=== PATIENT | male | born 1975 | race Two or more races ===

== ENCOUNTER 2019-01-18 16:03 | Outpatient (CLI) | payer OTHER | END 2019-01-18 16:42 | disposition home or self-care (01) | LOC: RAD 16:03 | DX: M54.5 Low back pain (principal) ==

== ENCOUNTER 2020-07-17 13:36 | Outpatient (CLI) | payer OTHER | END 2020-07-17 13:53 | disposition home or self-care (01) | LOC: RAD 13:36 | PROVIDERS: ATTEND General Practice | DX: M79.644 Pain in right finger(s) (principal) ==

== ENCOUNTER 2020-07-22 06:22 | Outpatient (CLI) | payer OTHER | END 2020-07-22 15:00 | disposition home or self-care (01) | LOC: LAB 06:22 | PROVIDERS: ATTEND General Practice | DX: M79.644 Pain in right finger(s) (principal); Z11.3 Encounter for screening for infections with a predominantly sexual mode of transmission; Z11.4 Encounter for screening for human immunodeficiency virus [HIV]; Z12.11 Encounter for screening for malignant neoplasm of colon; Z12.5 Encounter for screening for malignant neoplasm of prostate; Z13.0 Encounter for screening for diseases of the blood and blood-forming organs and certain disorders involving the immune mechanism; I10 Essential (primary) hypertension; Z13.220 Encounter for screening for lipoid disorders; Z13.228 Encounter for screening for other metabolic disorders; Z13.29 Encounter for screening for other suspected endocrine disorder; R10.84 Generalized abdominal pain; E03.8 Other specified hypothyroidism; E55.9 Vitamin D deficiency, unspecified ==

== ENCOUNTER 2021-11-18 10:24 | Emergency (ER) | payer OTHER ==
[~2021-11-18] VITALS: Ht 160 cm; Wt 100.7 kg
[2021-11-18] MEDS ORDERED: COZAAR25 MG PO (10:31)
== END 2021-11-18 12:22 | disposition home or self-care (01) ==
LOC: ER 10:24
DX: K59.00 Constipation, unspecified (principal)

== ENCOUNTER 2022-04-19 12:02 | Emergency (ER) | payer OTHER ==
[~2022-04-19] VITALS: Ht 162.6 cm; Wt 103.9 kg
[~2022-04-19 12:02] MED LIST: COZAAR25 MG PO
== END 2022-04-19 13:56 | disposition home or self-care (01) ==
LOC: ER 12:02
DX: S63.501A Unspecified sprain of right wrist, initial encounter (principal); X58.XXXA Exposure to other specified factors, initial encounter; Y93.89 Activity, other specified; Y92.89 Other specified places as the place of occurrence of the external cause; Y99.9 Unspecified external cause status; I10 Essential (primary) hypertension

== ENCOUNTER 2024-07-08 22:27 | Emergency (ER) | payer OTHER ==
[~2024-07-08] VITALS: Ht 162.6 cm; Wt 105.7 kg
[2024-07-08] MEDS ORDERED: cloNIDine HCL 0.2 MG TABLET PO ONE (23:45)
[2024-07-09] MEDS ORDERED: CLONIDINE HCL 0.1 MG TABLET PO ONE (00:15)
[2024-07-09] MEDS ORDERED: LEVALBUTEROL HCL 0.63 MG/3 ML SOLUTION IH ONE (01:06)
[2024-07-09] MEDS ORDERED: HYDROCODONE/CHLORPHEN P-STIREX 5 ML ML PO STA (01:07)
[2024-07-09 01:14] LABS: HEMATOCRIT 40.6 % (39.0-48.0); HEMOGLOBIN 13.8 g/dL (13-16.00); MEAN CELL VOLUME 89.2 fL (80.0-100.00); MEAN CORPUSCULAR HEMOGLOBIN 30.4 pg (27.00-32.0); MEAN CORPUSCULAR HGB CONC 34.1 g/dl (32.0-36.0); PLATELET COUNT 302 K/uL (150-450); RED BLOOD COUNT 4.54 M/uL (4.00-6.00); RED CELL DISTRIBUTION WIDTH 13.4 % (11.5-14.5)
[2024-07-09 01:23] LABS: ALBUMIN 3.3 gm/dL (3.4-5.0); BILIRUBIN TOTAL 0.29 mg/dL (0.3-1.2); GFR 79.75; GLOBULINA 3.9 G/DL (2.4-3.5); POTASSIUM 4.04 mEq/L (3.5-5.1); TOTAL PROTEIN 7.2 gm/dL (6.4-8.2)
[2024-07-09] MEDS ORDERED: LEVALBUTEROL HCL 0.63 MG/3 ML SOLUTION IH SCH (23:45)
== END 2024-07-09 02:44 | disposition home or self-care (01) ==
LOC: ER 22:28
PROVIDERS: Emergency Medicine
DX: J45.991 Cough variant asthma (principal); Z20.822 Contact with and (suspected) exposure to COVID-19; I10 Essential (primary) hypertension